=== PATIENT | male | born 1995 | race Caucasian/White ===

== ENCOUNTER 2018-08-07 20:08 | Emergency (ER) | payer BC, OTHER ==
[~2018-08-07] VITALS: Ht 185.4 cm; Wt 99.8 kg
[2018-08-07] MEDS ORDERED: NKM (20:29)
--- NOTE | 2018-08-07 20:42 | Emergency Room Report ---
History of Present Illness General Chief Complaint: Headache Source: Patient Present Illness HPI Patient presents with complaints of headaches reports that this morning awoke to a headache and has progressively worsened over the day Patient had 3 episodes of vomiting with increased pain The pain has slowly worsened over the day He reports going to bed without any symptoms last night denies any neck pain Denies any recent trauma patient display football at [employer] Denies any chest pain or shortness of breath Vomiting has been associated with the increased headache Denies any focal weakness however he feels generally malaised He does have some photophobia noted as well Allergies: Coded Allergies: Dairy (Verified Allergy, Unknown, 08/07/18) Patient History Past Medical History: see triage record Pertinent Family History: none Reviewed Nursing Documentation: PMH: Agreed; PSxH: Agreed Nursing Documentation-PMH Past Medical History: No Stated History Review of Systems All Other Systems: negative except mentioned in HPI Physical Exam Vital Signs Date Time Temp Pulse Resp B/P (MAP) Pulse Ox O2 Delivery O2 Flow Rate FiO2 08/07/18 20:19 98.8 99 16 118/75 (89) 97 Room Air Sp02 EP Interpretation: reviewed, normal General Appearance: well appearing, no apparent distress Head: normocephalic, atraumatic Eyes: bilateral eye PERRL, bilateral eye EOMI ENT: hearing grossly normal, normal pharynx, TMs + canals normal, uvula midline Neck: full range of motion, supple, no meningismus, no bony tend Respiratory: lungs clear, normal breath sounds, no rhonchi, no respiratory distress, no retraction, no accessory muscle use Cardiovascular #1: normal peripheral pulses, regular rate, rhythm, no edema, no gallop, no JVD, no murmur Gastrointestinal: normal bowel sounds, non tender, soft, no mass, no organomegaly, non-distended, no guarding, no hernia, no pulsatile mass, no rebound Genitourinary: no CVA tenderness Musculoskeletal: normal inspection Neurologic: oriented x3, responsive, 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 Dense intravascular blood pool mayreflect hemoconcentration or recent contrast administration Mild plagiocephaly. Last Vital Signs Date Time Temp Pulse Resp B/P (MAP) Pulse Ox O2 Delivery O2 Flow Rate FiO2 08/07/18 20:19 98.8 99 16 118/75 (89) 97 Room Air Status: improved Disposition: HOME, SELF-CARE Condition: Improved Scripts Ibuprofen* (MOTRIN*) 600 Mg Tablet 600 MG ORAL Q8H PRN for For Pain, #20 TAB 0 Refills Prov: Bridgett Antonio DO 08/07/18 Ondansetron (Zofran) 4 Mg Tablet 4 MG ORAL Q6H PRN for Nausea & Vomiting, #12 TAB Prov: Bridgett Antonio DO 08/07/18 Bridgett Antonio DO Aug 07, 2018 20:42
[2018-08-07 20:45] VITALS: BP 118/75
[2018-08-07] MEDS ORDERED: DiphenhydrAMINE 50mg/ml Inj IVP ONE (20:45)
[2018-08-07] MEDS ORDERED: Ketorolac 30mg Inj IV ONE (20:45)
[2018-08-07] MEDS ORDERED: Metoclopramide 10mg/2ml Inj IVP ONE (20:45)
--- NOTE | 2018-08-07 20:45 | NUR ---
ED Nurse Note: Patient walked in to ER c/o severe headache 12/13, N.V. AAO x4, VSS at this time, skin is dry, intact, warm to touch.
[2018-08-07 21:16] LABS: MEAN CORPUSCULAR VOLUME 79 FL (80-99); PLATELET COUNT 224 K/UL (150-450); RED BLOOD COUNT 6.08 M/UL (4.70-6.10); RED CELL DISTRIBUTION WIDTH 10.6 % (11.6-14.8); WHITE BLOOD COUNT 10.4 K/UL (4.8-10.8)
[2018-08-07 21:19] LABS: HEMATOCRIT 47.6 % (42.0-52.0)
[2018-08-07 21:20] LABS: ANION GAP 9 mmol/L (5-15); BLOOD UREA NITROGEN 22 mg/dL (7-18); CALCIUM 9.9 MG/DL (8.5-10.1); CARBON DIOXIDE 29 MMOL/L (21-32); CHLORIDE 100 MMOL/L (98-107); CREATININE 1.2 MG/DL (0.55-1.30); POTASSIUM 3.9 MMOL/L (3.5-5.1); SODIUM 138 MMOL/L (136-145)
[2018-08-07] MEDS ORDERED: IBUPROFEN600 MG ORAL (22:08)
[2018-08-07] MEDS ORDERED: ZOFRAN4 M1 ORAL (22:08)
[2018-08-07 22:30] VITALS: BP 118/75
--- NOTE | 2018-08-07 22:30 | NUR ---
ER DISCHARGE NOTE: Patient is cleared to be discharged per ERMD, pt is aox4, on room air, with stable vital signs. pt was given dc and prescription instructions, pt was able to verbalize understanding, pt id band and iv site removed without complications. pt is able to ambulate with steady gait. pt took all belongings.
--- NOTE | 2018-08-08 10:46 | Diagnostic Imaging Report ---
Indication: Headache Technique: Contiguous 5 mm thick transaxial imaging of the head obtained in a Siemens Sensation [address] scanner. Soft tissue and bone windows generated. Automatic Exposure Control was utilized. Total Dose length Product (DLP): 1457.[address] Dose Index Volume (CTDIvol): 70.38 mGy Comparison: none Findings: The size and configuration of the cortical sulci, basal cisterns, and ventricles are within normal limits for age. There is no mass effect, midline shift, or edema identified. There is no evidence of acute hemorrhage or abnormal intra-axial or extra-axial fluid collections. The bones and soft tissues are unremarkable. Impression: No mass effect, edema or acute bleed. [facility] has communicated the preliminary results to the Emergency Department. Their findings are largely concordant with this report. The CT scanner at [facility] is accredited by the [employer] and the scans are performed using dose optimization techniques as appropriate to a performed exam including Automatic Exposure control.
== END 2018-08-07 22:30 | disposition home or self-care (01) ==
LOC: EMR 20:24
DX: R51 Headache (principal); R11.10 Vomiting, unspecified; Z91.011 Allergy to milk products
CPT/HCPCS: 36415; 70450; 80048; 85007; 85025; 96361; 96374; 96375; 99284; J1200; J1885; J2765